=== PATIENT | female | born 1970 | race Caucasian/White ===

== ENCOUNTER 2020-10-26 16:10 | Emergency (ER) | payer OTHER ==
[~2020-10-26] VITALS: Ht 175.3 cm; Wt 63.5 kg
--- NOTE | 2020-10-26 16:50 | NUR ---
dysuria, frequency, couple days, R>L flank pain, no hx kidney stones, took pyridium w no relief. chills. low back pain. no fevers/n/v/d. as
[2020-10-26] MEDS ORDERED: SODIUM CHLORIDE 0.9% 1,000ML IVBOLUS ONE (17:30)
[2020-10-26] MEDS ORDERED: SODIUM CHLORIDE FLUSH 10ML SYR IVF ONE (17:30)
[2020-10-26] MEDS ORDERED: ONDANSETRON 2MG/ML, 2ML IVPush ONE (17:30)
[2020-10-26] MEDS ORDERED: KETOROLAC 30 MG/1 ML ONE (17:33)
[2020-10-26] MEDS ORDERED: ONDANSETRON 2MG/ML, 2ML ONE (17:33)
[2020-10-26 17:36] LABS: BASOPHILS % (AUTO) 1 % (0-1); EOSINOPHILS % (AUTO) 1 % (1-7); LYMPHOCYTES % (AUTO) 20 % (22-44); MEAN CORPUSCULAR HEMOGLOBIN 31.1 pg (27.0-34.8); MEAN CORPUSCULAR HGB CONC 34.9 g/dL (32.4-35.8); MEAN PLATELET VOLUME 7.7 fL (7.4-10.4); MONOCYTES % (AUTO) 8 % (2-9); NEUTROPHILS % (AUTO) 70 % (42-75); PLATELET COUNT 385 x10^3/uL (130-400); RED BLOOD COUNT 4.55 x10^6/uL (3.82-5.3); RED CELL DISTRIBUTION WIDTH 12.9 % (9.6-15.2)
[2020-10-26 17:38] LABS: MD NO
[2020-10-26 17:49] LABS: ALBUMIN 4.5 g/dL (3.4-5.0); ANION GAP 7 mmol/L (5-15); CHLORIDE 106 mmol/L (98-107)
[2020-10-26 17:54] LABS: ALANINE AMINOTRANSFERASE 24 U/L (12-78); ALKALINE PHOSPHATASE 80 U/L (45-117); BILIRUBIN,TOTAL 1.2 mg/dL (0.2-1.0); CREATININE 0.91 mg/dL (0.55-1.02); TOTAL PROTEIN 8.1 g/dL (6.4-8.2)
[2020-10-26] MEDS ORDERED: KETOROLAC 30 MG/1 ML IVPush ONE (18:00)
[2020-10-26 18:03] LABS: MICROSCOPIC INDICATED
--- NOTE | 2020-10-26 18:08 | NUR ---
sts nausea better after zofran. to ct. as
--- NOTE | 2020-10-26 18:47 | NUR ---
STS PAIN IMPROVED. IVF INFUSED. AWAITING RECHECK.
--- NOTE | 2020-10-26 18:51 | NUR ---
report to darin amaral. as
--- NOTE | 2020-10-26 18:59 | NUR ---
PATIENT RESTING IN BED IN NAD. CALL [facility] IN REACH. SAFETY MAINTAINED. WILL CONTINUE TO MONITOR.
[2020-10-26] MEDS ORDERED: CEFTRIAXONE PMX 1GM/50ML 50 ML ONE (19:28)
[2020-10-26] MEDS ORDERED: CEFTRIAXONE PMX 1GM/50ML 50 ML IV ONE (19:30)
--- NOTE | 2020-10-26 20:14 | NUR ---
DISCHARGE INSTRUCTIONS REVIEWED WITH PATIENT. NO FURTHER QUESTIONS. IV REMOVED PER DC POLICY. ALL PERSONAL BELONGINGS WITH PATIENT ON DC. STEADY GAIT TO LOBBY. PRESCRIPTION HANDED TO PATIENT DIRECTLY
[2020-10-26 20:15] VITALS: BP 111/66
[2020-10-26] MEDS ORDERED: OMNIPAQUE 350 MG/ML, 100ML BOTTLE ONE (22:54)
== END 2020-10-26 20:17 | disposition home or self-care (01) ==
LOC: ED 17:01
DX: N10 Acute pyelonephritis (principal)
CPT/HCPCS: 36415; 74177; 80053; 81001; 84703; 85025; 87077; 87086; 87186; 96365; 96375; 99285; J0696; J1885; J2405; J7030; Q9967; 99284